=== PATIENT | male | born 2000 | race Caucasian/White ===

== ENCOUNTER 2019-07-30 14:18 | Emergency (ER) | payer MEDICAID, SELFPAY ==
[2019-07-30 14:20] VITALS: BP 134/65; PULSE 98; RESP 16; TEMP 36.8; O2SAT 100; BMI 21.8
--- NOTE | 2019-07-30 14:46 | ED.VIS.GEN ---
History of Present Illness Chief Complaint: Lower Extremity Injury Informant: Patient Onset: Yesterday Context: Gradual Onset Timing: Continuous Current Severity: Moderate Maximum Severity: Moderate Narrative: The patient presents to the emergency department with left leg pain. He had a tattoo done about 4 days ago. He states for the first 2 days he felt fine. Over the past 24 hours, he said increasing redness and pain at the area. States he was walking today and had burning pain in the leg. He denies any swelling. He denies any fevers or chills. He has no history of immunosuppression. He has not taken anything for his pain. Prior similar symptoms: No Recent Illness/Hospitalization: No Past Medical History - Allergies and Home Meds Allergies/Adverse Reactions: Allergies No Known Allergies Allergy (Verified 07/30/19 14:19) Primary Care Physician: Chris Mai MD [STAFF PHYSICIAN] - 1 Day for another exam Prior records reviewed: Yes Past Medical History: None Surgical History: no surgical history Smoking Status: Current every day smoker Review of Systems General: Denies: Chills, Fever, Sweats Eyes: Denies: Visual changes - bilaterally, Diplopia ENT: Denies: Rhinorrhea, Sore throat Cardiovascular: Denies: Chest pain, Palpitations Respiratory: Denies: Dyspnea, Cough, Dyspnea on exertion Gastrointestinal: Denies: Abdominal pain, Nausea, Vomiting, Diarrhea, Melena, Hematochezia Genitourinary: Denies: Dysuria, Hematuria, Frequency Musculoskeletal: Reports: Arthralgias. Denies: Back pain, Extremity Pain Skin: Denies: Rash, Wounds Neurological: Denies: Headache, Weakness, Numbness Physical Exam Vital Signs/Narrative: Vital Signs Temp Pulse Resp BP Pulse Ox 07/30/19 14:20 98.2 F 98 16 134/65 H 100 Inital Vital Signs reviewed: Yes General: Well nourished, Well developed, No Acute Distress Head: Normocephalic, Atraumatic Eyes: Perrl, EOMI ENT: Moist mucous membranes, No rhinorrhea Neck: Supple, Nontender Cardiovascular: Regular rate, Regular rhythm, No murmurs Respiratory: No distress, CTA bilaterally, Chest nontender Abdomen: Soft, Nontender, Nondistended, Normal bowel sounds Back: Nontender, Normal Inspection Extremities: No edema, Tenderness - Cellulitis over the new tattoo on the left lateral calf. No lymphangitic streak. Compartments are soft. No crepitus. Normal pulses. Skin: Normal color, No rash Neurological: Alert, Oriented x3, Cranial nerves II-XII grossly intact, Normal Strength, Normal Sensation Psychological: Normal affect, Normal Mood Diagnostic/Tx/Re-eval - Medical Decision Making The patient presents with cellulitis after tattoo. There is no streaking. There is no evidence of dangerous process. It is all locally contained. He does not have a fever. He has no history of immunosuppression. The patient will be treated with Bactrim and Keflex. He was counseled to have this wound reevaluated within the next 24 to 48 hours or return to the emergency department if it is worsening in any way. He is comfortable with this plan of care. Impression 1. Cellulitis left lower extremity status post tattoo ED Disposition - Plan for ED Patient: Instructions: Cellulitis Prescriptions: Smz/Tmp Ds [Bactrim Ds] 1 tab PO BID #14 tab Prescription Printed Cephalexin [Keflex] 500 mg PO Q6 #40 cap Prescription Printed Referrals: Chris Mai MD [STAFF PHYSICIAN] - 1 Day for another exam
[2019-07-30] MEDS: Smz/Tmp Ds Tablet 1 TABLET PO (14:58)
[2019-07-30] MEDS: Cephalexin 250 MG Capsule 500 MG PO (14:58)
== END 2019-07-30 15:06 | disposition home or self-care (01) ==
LOC: ED 14:54
PROVIDERS: Emergency Provider Emergency Medicine
DX: L03.116 Cellulitis of left lower limb (principal); F17.200 Nicotine dependence, unspecified, uncomplicated
CPT/HCPCS: 99283

== ENCOUNTER 2020-03-03 00:30 | Emergency (ER) | payer MEDICAID, SELFPAY ==
[2020-03-03 00:32] VITALS: BP 133/88; PULSE 105; RESP 16; TEMP 36.9; O2SAT 98; BMI 20.2
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
--- NOTE | 2020-03-03 01:05 | ED.DEP ---
ED Disposition - Plan for ED Patient: Disposition: Home or Assisted Living Instructions: ED Head Injury Adult Referrals: Cj Walton MD [NON-STAFF] - 3-5 Days if not improving Additional Instructions: Plenty of fluids and rest. Follow-up if not improving. You are medically cleared to go back to work.
--- OUTSIDE RECORDS SUMMARY | 2020-07-06 13:20 | XMS RPT_ITS | CCD ---
:2000 External Reference #:[id number] Demographics Preferred Language Unknown Marital Status Unknown Nondenominational Affiliation Unknown Race Unknown Ethnic Group Unknown Author Organization [facility] Care Team Providers Name Role Phone Unavailable Unavailable Unavailable Results Result Name Value Range Unit Interpretation Flag Date Location progress on 2020-02 PROGRESS HNO ID: [id number] Normal 02-26-2020 [facility] Author: Sg Gomez ([id number]) Service: ? Author Type: Physician Type: Progress Notes Filed: 02/26/2020 5:04 PM Note Text: Express Care Triage Note: Patient presents to the express care with complaint of synco pal episodes today. He was able to work much of the day but had episodes of pressure like electric in his head and passing out. He notes he had a glass vase or lamp fall on his head a couple days ago. He is not feelin g syncopal currently. He appears anxious but is alert and speaking flue ntly. Offered EMS. His girlfriend will take him to [facility] ER for furt her evaluation. cnov on 2020-02-26 CNOV Office Visit (UCWSTR) Normal 02-26-[address] [place] [address] [facility] CARLO ANDERSON ([id number]) 99 M [facility] Time Provider Department ([id number]) 02/26/20 5:00 PM SG GOMEZ [facility] During your visit today, we recorded the following informati on about you: Sg Gomez MD 02/26/2020 5:04 PM Signed Express Care Triage Note: Patient presents to the expr ess [facility] with complaint of syncopal episodes today. He was able to work much of the day but had episodes of pressure like electric in his head and passing out. He notes he had a g lass vase or lamp fall on his head a couple days ago. He is not feeling syncopal currently . He appears anxious but is alert and speaking fluently. Offered REJI Napier. His girlfriend will take him to [facility] ER for further evaluation. Referring Provider: SELF [[id number]] Allergies As of Date: 02/26/2020 (No Known Allergies) Date Reviewed: 05/17/2017 Reviewed by: Marlo Faustin - Fully Assessed Reason for Visit: Syncope [106] Primary Visit Diagnosis:Syncope, unspecified syncope type [R 55] Prescriptions as of 02/26/2020 Sig: MINOCYCLINE 100 MG CAPSULE TAKE 1 CAPSULE BY MOUTH ONCE * DEXAMETHASONE 0.75 MG TABLET ADAPALENE 0.1 % TOPICAL CREAM Use on acne prone areas each * DEXTROAMPHETAMINE-AMPHETAMINE* Take 1 capsule by mouth every * Problem List As Of Date 02/26/2020 Noted Resolved Other behavioral problems [V40.3] 12/28/2005 11/15/2011 Inguinal hernia unilateral 09/30/2009 11/15/2011 Toe pain [M79.676] 11/15/2011 02/07/2012 Rash and nonspecific skin eruption [R21] 02/07/2012 07/01/20 15 Attention deficit hyperactivity disorder (ADHD)*07/01/2015 Encounter Status:Closed by SG GOMEZ MD on 02/26/20 liver on 2019-02-15 Albumin mass conc 4.0 3.2-5.0 GM/DL Normal 02-15-2019 [facility] ([id number]) Comment: Performed By: #### L500.0449 9 #### [address] [address] Albumin/Globulin mass ratio 1.4 0.8-2.0 {ratio} Normal [facility] [place] ([id number]) Comment: Performed By: #### [id number] 9 #### [facility] [address] [place] [address] ALK PHOS 153 45-117 U/L High 02-15-2019 [facility] ([id number]) Comment: Performed By: #### [id number] 9 #### [facility] [address] [place] [address] ALT enzyme act/vol 101 13-61 IU/L High 02-15-2019 [facility] ([id number]) Comment: Result Comment: RESULTS MAY BE FALSELY DEPRESSED AFTER THE ADMINISTRATION OF SULFASALAZINE AND/OR SULFAPY RIDINE. Performed By: #### [id number] 9 #### [facility] [address] [place] [address] BILI DIRECT 0.11 0.00-0.20 MG/DL Normal 02-15-2019 [facility] ([id number]) Comment: Performed By: #### [id number] 9 #### [facility] [address] [place] [address] BILI TOTAL 0.4 0.2-1.0 MG/DL Normal 02-15-2019 [facility] ([id number]) Comment: Performed By: #### [id number] 9 #### [facility] [address] [place] [address] Globulin mass conc (S) 3.0 2.2-4.2 GM/DL Normal [address] [place] [address] (00 000) Comment: Performed By: #### [id number] 9 #### [facility] [address] [place] [address] Protein mass conc 7.0 6.0-8.5 GM/DL Normal 02-15-2019 [facility] ([id number]) Comment: Performed By: #### [id number] 9 #### [facility] [address] [place] [address] SGOT (AST) 42 8-34 U/L High 02-15-2019 [facility] ([id number]) Comment: Result Comment: RESULTS MAY BE FALSELY DEPRESSED AFTER THE ADMINISTRATION OF SULFASALAZINE AND/OR SULFAPY RIDINE. Performed By: #### [id number] 9 #### [facility] [address] [place] [id number] # [phone] Summary Purpose Family History No Family History Records FoundNo Family History Records Found Advance Directives No Advanced Directives Records FoundNo Advanced Directives Records Found Additional Source Comments FOR RECORDS PERTAINING TO PATIENTS WHO ARE OR HAVE BEEN ENROLLED IN A CHEMICAL DEPENDENCY/SUBSTANCE ABUSE PROGRAM, SOME INFORMATION MAY BE OMITTED. This clinical summary was aggregated from multiple sources. Caution should be exercised in using it in the provision of clinical care. This summary normalizes information from multiple sources, and as a consequence, information in this document may materially changethe coding, format and clinical context of patient data. In addition, data may be omittedin some cases. CLINICAL DECISIONS SHOULD BE BASED ON THE PRIMARY CLINICAL RECORDS. [facility] provides no warranty or guarantee of the accuracy or completeness of information in this document. UNRECOGNIZED CONTENT PROVIDED BELOW FOR UNRECOGNIZED SECTION No Status Records FoundNo Status Records Found UNRECOGNIZED CONTENT PROVIDED BELOW FOR UNRECOGNIZED SECTION INFORMATION SOURCE DATE CREATED AUTHOR AUTHOR'S ORGANIZATIO N 02/23/2019 [facility] DATE CREATED AUTHOR AUTHOR'S ORGANIZATIO N 02/26/2020 [facility] milagros
--- OUTSIDE RECORDS SUMMARY | 2020-07-06 13:20 | XMS RPT_ITS | CCD ---
:2000 External Reference #:[id number] Demographics Preferred Language Unknown Marital Status Unknown Jew Affiliation Unknown Race Unknown Ethnic Group Unknown Author Organization [facility] Care Team Providers Name Role Phone Unavailable Unavailable Unavailable Results Result Name Value Range Unit Interpretation Flag Date Location progress on 2020-02 PROGRESS HNO ID: [id number] Normal 02-26-2020 [facility] Author: Sg Gomez ([id number]) Service: ? Author Type: Physician Type: Progress [...] EMS. His girlfriend will take him to [facility] ER for furt her evaluation. cnov on 2020-02-26 CNOV Office Visit (UCWSTR) Normal 02-26-[address] [place] [address] [facility] CARLO ANDERSON ([id number]) 99 M [facility] Time Provider Department ([id number]) 02/26/20 5:00 PM SG GOMEZ [facility] During your visit today, we recorded the following informati on about you: Sg Gomez MD 02/26/2020 5:04 PM Signed Express Care Triage Note: Patient presents to the expr ess [facility] with complaint of syncopal episodes today. He [...] Napier. His girlfriend will take him to [facility] ER for further evaluation. Referring Provider: SELF [...] mass conc 4.0 3.2-5.0 GM/DL Normal 02-15-2019 [facility] ([id number]) Comment: Performed By: #### [id number] 9 #### [address] [address] Albumin/Globulin mass ratio 1.4 0.8-2.0 {ratio} Normal [facility] [place] ([id number]) Comment: Performed By: #### [id number] 9 #### [facility] [address] [place] [address] ALK PHOS 153 45-117 U/L High 02-15-2019 [facility] ([id number]) Comment: Performed By: #### [id number] 9 #### [facility] [address] [place] [address] ALT enzyme act/vol 101 13-61 IU/L High 02-15-2019 [facility] ([id number]) Comment: Result Comment: RESULTS MAY BE FALSELY DEPRESSED AFTER THE ADMINISTRATION OF SULFASALAZINE AND/OR SULFAPY RIDINE. Performed By: #### [id number] 9 #### [facility] [address] [place] [address] BILI DIRECT 0.11 0.00-0.20 MG/DL Normal 02-15-2019 [facility] ([id number]) Comment: Performed By: #### [id number] 9 #### [facility] [address] [place] [address] BILI TOTAL 0.4 0.2-1.0 MG/DL Normal 02-15-2019 [facility] ([id number]) Comment: Performed By: #### [id number] 9 #### [facility] [address] [place] [address] Globulin mass conc (S) 3.0 2.2-4.2 GM/DL Normal [address] [place] [address] (00 000) Comment: Performed By: #### [id number] 9 #### [facility] [address] [place] [address] Protein mass conc 7.0 6.0-8.5 GM/DL Normal 02-15-2019 [facility] ([id number]) Comment: Performed By: #### [id number] 9 #### [facility] [address] [place] [address] SGOT (AST) 42 8-34 U/L High 02-15-2019 [facility] ([id number]) Comment: Result Comment: RESULTS MAY BE FALSELY DEPRESSED AFTER THE ADMINISTRATION OF SULFASALAZINE AND/OR SULFAPY RIDINE. Performed By: #### [id number] 9 #### [facility] [address] [place] [id number] # [phone] Summary Purpose Family History No Family History [...] BE BASED ON THE PRIMARY CLINICAL RECORDS. [facility] provides no warranty or guarantee of the accuracy or completeness of information in this document. UNRECOGNIZED CONTENT PROVIDED BELOW FOR UNRECOGNIZED SECTION No Status Records FoundNo Status Records Found UNRECOGNIZED CONTENT PROVIDED BELOW FOR UNRECOGNIZED SECTION INFORMATION SOURCE DATE CREATED AUTHOR AUTHOR'S ORGANIZATIO N 02/23/2019 [facility] DATE CREATED AUTHOR AUTHOR'S ORGANIZATIO N 02/26/2020 [facility] milagros
== END 2020-03-03 01:12 | disposition home or self-care (01) ==
LOC: ED 01:12
PROVIDERS: Emergency Provider Emergency Medicine
DX: R42 Dizziness and giddiness (principal); S09.90XA Unspecified injury of head, initial encounter; F17.200 Nicotine dependence, unspecified, uncomplicated; W22.8XXA Striking against or struck by other objects, initial encounter
CPT/HCPCS: 99282

== ENCOUNTER 2020-05-14 11:16 | Emergency (ER) | payer MEDICAID, SELFPAY ==
[2020-05-14 11:17] VITALS: BP 151/114; PULSE 88; RESP 15; TEMP 36.2; O2SAT 98; BMI 23.0
--- NOTE | 2020-05-14 11:38 | EKG12_ITS ---
Test Reason : GENERAL ILLNESS Blood Pressure : / mmHG Vent. Rate : 084 BPM Atrial Rate : 084 BPM P-R Int : 176 ms QRS Dur : 088 ms QT Int : 358 ms P-R-T Axes : 059 053 047 degrees QTc Int : 423 ms Sinus rhythm with sinus arrhythmia with occasional Premature ventricular complexes Otherwise normal ECG Confirmed by JENN SHARPE, LINDA ([id number]), school photograph editor AMBER HIGHTOWER ([id number]) on 05/16/2020 11:27:13 A M Referred By: FLORIN Confirmed By:TAE BARAJAS MD
--- NOTE | 2020-05-14 11:46 | RAD_ITS ---
STUDY: X-RAY CHEST REASON FOR EXAM: Male, 19 years old. INTERMITTENT and quot;SHOCK BEHIND HIS EYES AND INTO HIS CHEST and quot;. and quot;DRAINS ALL HIS ENERGY and quot;. GOING ON FOR A COUPLE DAYS TECHNIQUE: Single AP portable view of the chest. COMPARISON: None. FINDINGS: The lungs are clear and expanded. There is no demonstrated pleural abnormality. Normal size heart. Normal mediastinum and ruddy. Normal visualized pulmonary arteries. Normal visualized aortic arch and descending thoracic aorta. Normal visualized thoracic spine. Normal visualized ribs, clavicles, and shoulders. There is no demonstrated abnormality of the visualized soft tissue structures of the upper abdomen. RAD/Chest 1 View (Portable) IMPRESSION: Normal x-ray examination of the chest. Electronically Signed: Wes Beal, at 12:52 EDT , Service support ,
--- NOTE | 2020-05-14 11:53 | ED.VISSUMM ---
- ER Visit Summary Date of Service: 05/14/20 Chief Complaint: Chest pain History of Present Illness: The patient is a 19 M who presents with chest pain that has been intermittent over the past 2 days. Patient describes the pain is sharp and stabbing. Patient states the pain is over the left lower chest area. Patient states the pain last for couple minutes then resolves. Patient states the pain is worse with stress and with exertion. Patient also admits to some shortness of breath with exertion. Patient states he is out of breath when he goes up a flight of steps. Patient also admits to some weakness in his lower extremities. Patient states he feels like his legs want to give out. Patient also admits to a generalized headache. Physical Examination: Vital signs are stable. Patient is afebrile. Patient is in no acute distress. Oral mucosa is pink and moist. Neck is supple. Trachea is midline. There is no JVD noted. Heart was regular rate and rhythm. Lungs are clear and equal bilaterally. There is some reproducible tenderness over the left lower chest wall. Abdomen is soft. Bowel sounds are normal. There is no tenderness. There is no rebound or guarding noted. Skin is warm dry. Cranial nerves II through XII are intact. There are no focal motor or sensory deficits noted. Extremities are intact. There is no calf tenderness or edema. Test Results: EKG showed normal sinus rhythm with a rate of 84. There are no acute ST or T wave changes. This was unchanged compared to previous EKG dated 03/12/2017. CBC and comprehensive metabolic profile were obtained and were essentially within normal limits. Influenza swab was obtained and was negative. Portable chest x-ray was obtained. There is no acute cardiopulmonary process. This was interpreted by the radiologist and reviewed by myself. Emergency Department Course and Treatment: Patient was given a dose of Toradol here. Patient felt better on reevaluation. Patient has a HEART score of 1. Patient was advised that this is low risk for acute cardiac event. Patient was instructed to follow-up with his primary care physician in 5 to 7 days. Patient was instructed to take Tylenol or ibuprofen as needed for pain. Patient understood and was agreeable with the plan. All questions were answered. Disposition: Discharge home Impression: Chest pain This note was generated with [employer] dictation software. It may contain incorrect words, spelling, and punctuation that were not noted in review of the chart prior to signing ED Disposition - Plan for ED Patient: Disposition: Home or Assisted Living Diagnosis: Chest pain Instructions: ED Chest Pain Atypical Unkn Cause Referrals: Angeles Gupta [NON-STAFF] - 5-7 Days Irene Lucero [STAFF PHYSICIAN] - 5-7 Days
[2020-05-14 12:08] LABS: Absolute Lymphocyte Count 2.25 X10^3/uL (0.83-4.51); Absolute Neutrophil Count 4.3 X10^3/uL (2.0-7.7); Basophil# 0.02 X10^3/uL; Basophil% 0.3 % (0-1); Eosinophil# 0.12 X10^3/uL; Eosinophils% 1.5 % (0-5); Hematocrit 47.7 % (40-54); Hemoglobin 15.6 g/dL (13.0-16.5); Lymphocyte # 2.25 X10^3/ul (4.0); Lymphocyte % 28.2 % (19-41); Mean Corp Hgb Conc 32.7 g/dL (32-36); Mean Corpuscular Hgb 30.2 pg (27.0-32.0); Mean Corpuscular Volume 92.4 fL (80-94); Mean Platelet Vol. 10.7 fl (6.2-12.0); Monocyte# 1.25 X10^3/uL; Monocyte% 15.7 % (0-10); NRBC Flagged by Analyzer 0 % (0-5); Neutrophil # 4.28 X10^3/uL (2.7-7.7); Neutrophil % 53.7 % (47-70); Platelet Count 199 K/mm3 (150-450); RBC Distribution Width CV 13.4 % (11.6-14.6); RBC Distribution Width SD 45.7 fl (35.1-43.9); Red Blood Count 5.16 M/mm3 (4.6-6.2)
[2020-05-14 12:20] LABS: AST(SGOT) 79 U/L (15-37); Alanine Aminotransfer ALT/SGPT 198 U/L (16-61); Albumin, Serum 3.6 g/dL (3.2-5.0); Alkaline Phosphatase 144 U/L (45-117); Anion Gap 2 (5-15); BUN 13 mg/dL (7-18); BUN/Creat Ratio 13.4 RATIO (10-20); Calcium,Total 8.8 mg/dL (8.5-10.1); Chloride 106 mmol/L (98-107); Creatinine, Serum 0.97 mg/dL (0.70-1.30); EST Glomerular Filtration Rate 104 mL/min (>60); Est Glom Filt Rate - Afr Amer 126 mL/min (>60); Globulin 3.7 g/dL (2.2-4.2); Glucose 65 mg/dL (74-106); Potassium 4.1 mmol/L (3.5-5.1); Protein, Total 7.3 g/dL (6.4-8.2); Sodium Level 141 mmol/L (136-145)
[2020-05-14 12:28] VITALS: BP 127/72; PULSE 76; RESP 16; O2SAT 100
[2020-05-14] MEDS: 0.9% Normal Saline 1,000 ML 1000 ML IV (12:28)
[2020-05-14] MEDS: Ketorolac 30 MG/ML Syringe IV (12:28)
[2020-05-14 12:55] VITALS: BP 118/60; PULSE 70; RESP 16; O2SAT 98
--- NOTE | 2020-05-14 13:15 | CM.ED ---
Social Work Consult: Mental Health Informant: Shantal from . Shantal called [facility] ED to updated on patient being send to the ED for a mental Health eval. Shantal states that has been reporting shocks of pain and per Shantal there is not evidence of this. Chief Complaint: Chest Pain. Patient state things are fine. Martial/Social History: Single. Living Arrangements: Currently living at [facility] with Supports/Resources: Reports support from mother, father, girlfriend and [employer]. Education/Employment: Unemployed. Denies any issues with comprehension or understanding. Mental Health treatment/history: Denies. I was not some crazy meds per patient. Patient states they thought I was crazy. Patient states history of inpatient psychiatric placement. Patient states to have stayed at the [facility] when patient was an adolescent. Patient denies being prescribed any medication for mental health management. Patient states I do think I get anxious. Substance Abuse/use: Heroine and Meth. Patient states to have last used on 03-17-2020 when I turned myself in. Patient states to [place] [facility] [place] [facility] I [facility]. Patient currently has a stream control officer and reports that patient is court ordered to participate in substance abuse supports ([facility]). Patient states I want to get clean. Risk to Self/Others: Patient denies any homicidal/suicidal thoughts/plans/intents. Patient does reports to have rage but I can control that. Patient denies any harm to others or thinking of harming others or self. Mental Status Exam: A&Ox3 Appearance/General Behavior: Calm. Sleepy. Mood/Affect: Appropriate. Thought Process: Reports to have heard a High pitched noise when patient went to group yesterday but denies any other auditory hallucinations. Patient denies visual hallucinations. Patient denies any concerns of paranoia. Judgement: Fair Assessment: Met with patient in room. Introduced self and social science professor role. Patient agreeable to speaking with this social science professor. Patient expressing no concerns on returning to [facility] and just wanted to get checked out. Patient states that [facility] is helping patient get on the right track. Patient voicing no further needs. Updated Dr. Casarez on above social work assessment and reason for referral. Mendy Dietz MSW, REGGIE
[2020-05-14 13:47] VITALS: BP 120/58; PULSE 103; RESP 16; O2SAT 997
== END 2020-05-14 13:55 | disposition home or self-care (01) ==
PROVIDERS: Emergency Provider Emergency Medicine
DX: R07.9 Chest pain, unspecified (principal); F17.200 Nicotine dependence, unspecified, uncomplicated
CPT/HCPCS: 71045; 80053; 85025; 87804; 93005; 96374; 99284; J7030; A4216

== ENCOUNTER 2020-06-03 15:33 | Emergency (ER) | payer MEDICAID, SELFPAY ==
[2020-06-03 15:34] VITALS: BP 144/75; PULSE 86; RESP 14; TEMP 37.3; O2SAT 100; BMI 22.1
--- NOTE | 2020-06-03 16:07 | ED.VISSUMM ---
- ER Visit Summary Date of Service: 06/03/20 Chief Complaint: Suicide attempt History of Present Illness: The patient is a 19 M who comes in with an initial complaint of rash but then tells nursing staff he has been suicidal for the past week. He tried to overdose on fentanyl 2 days ago. He states that he woke up and decided to come to the ED because he did not . His last suicide attempt in 2016 while incarcerated. He said that they put him on psychiatric meds and when he came out of jail he stopped taking the medications because they made him more suicidal. He denies any homicidal ideation, auditory or visual hallucinations. Physical Examination: Vital signs reviewed. HEENT exam unremarkable. Heart is regular rate and rhythm without murmurs. Lungs are clear to auscultation. Abdomen is soft and nontender. Extremities reveal no edema. Skin exam normal. Neurologic exam normal. Psychiatric exam reveals depressed male with flat affect. He does voice suicidal thoughts Test Results: Hemoglobin 16.6, chloride 108, ALT 101, AST 48, alkaline phosphatase 136 Emergency Department Course and Treatment: The patient was evaluated by our manager of case management. From a medical standpoint he is medically cleared for psychiatric evaluation and transfer. The patient was discussed with [facility] and was accepted for psychiatric transfer Treatment Plan: [] Disposition: Discharge Impression: Suicide attempt, depression This note was generated with [employer] dictation software. It may contain incorrect words, spelling, and punctuation that were not noted in review of the chart prior to signing ED Disposition - Plan for ED Patient: Referrals: Care Physician,No Primary [Primary Care Provider] -
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
[2020-06-03 16:20] LABS: Absolute Lymphocyte Count 1.67 X10^3/uL (0.83-4.51); Absolute Neutrophil Count 8.4 X10^3/uL (2.0-7.7); Basophil# 0.04 X10^3/uL; Basophil% 0.4 % (0-1); Eosinophil# 0.09 X10^3/uL; Eosinophils% 0.8 % (0-5); Hematocrit 48.8 % (40-54); Hemoglobin 16.6 g/dL (13.0-16.5); Lymphocyte # 1.67 X10^3/ul (4.0); Lymphocyte % 15.3 % (19-41); Mean Corpuscular Hgb 30.5 pg (27.0-32.0); Mean Corpuscular Volume 89.7 fL (80-94); Mean Platelet Vol. 10.6 fl (6.2-12.0); Monocyte# 0.73 X10^3/uL; Monocyte% 6.7 % (0-10); NRBC Flagged by Analyzer 0 % (0-5); Neutrophil # 8.37 X10^3/uL (2.7-7.7); Neutrophil % 76.4 % (47-70); Platelet Count 282 K/mm3 (150-450); RBC Distribution Width CV 11.9 % (11.6-14.6); RBC Distribution Width SD 38.7 fl (35.1-43.9); Red Blood Count 5.44 M/mm3 (4.6-6.2); White Blood Count 10.9 K/mm3 (4.4-11.0)
[2020-06-03 16:51] LABS: Alcohol, Blood (Medical)-Serum < 3.0 mg/dL
[2020-06-03 16:55] LABS: Amphetamine Urine VISTA NEGATIVE (<1000 ng/mL); Barbiturate Urine VISTA NEGATIVE (< 200 ng/mL); Benzodiazepine Urine VISTA NEGATIVE (< 200 ng/mL); Cocaine Urine VISTA NEGATIVE (< 300 ng/mL); Ecstacy Urine VISTA NEGATIVE (< 500 ng/mL); Methadone Urine VISTA NEGATIVE (< 300 ng/mL); PCP Urine VISTA NEGATIVE (< 25 ng/mL); THC Urine VISTA NEGATIVE (< 50 ng/mL); Vista UDS pH Range 7
[2020-06-03 17:00] LABS: ALB/GLOB Ratio 0.9 RATIO (0.9-2.4); AST(SGOT) 48 U/L (15-37); Alanine Aminotransfer ALT/SGPT 101 U/L (16-61); Albumin, Serum 3.8 g/dL (3.2-5.0); Alkaline Phosphatase 136 U/L (45-117); Anion Gap 4 (5-15); BUN 13 mg/dL (7-18); BUN/Creat Ratio 14.5 RATIO (10-20); Calcium,Total 9.1 mg/dL (8.5-10.1); Chloride 108 mmol/L (98-107); EST Glomerular Filtration Rate 115 mL/min (>60); Est Glom Filt Rate - Afr Amer 139 mL/min (>60); Estimated Creatinine Clearance 133.33 ml/min; Globulin 4.4 g/dL (2.2-4.2); Glucose 79 mg/dL (74-106); Potassium 4.1 mmol/L (3.5-5.1); Protein, Total 8.2 g/dL (6.4-8.2); Sodium Level 138 mmol/L (136-145)
--- NOTE | 2020-06-03 17:21 | CM.ED ---
SOCIAL WORK Per Dr. Nieves, patient is medically cleared for placement. Referral faxed and called to Sonia with [facility]. Awaiting acceptance at this time. Iman Eason, HAND BOOKED FOLDER AND STITCHER, INTERNET SALES MANAGER
[2020-06-03 17:30] VITALS: RESP 18
--- NOTE | 2020-06-03 17:44 | CM.ED ---
SOCIAL WORK Patient accepted to [facility] by Dr. Jones to the Dual Dx Unit. Nurse to call report to option 1. Belt Fixer to set up transport. Patient and staff updated. Copy of [facility] [place] [facility] faxed per request. Iman Eason, PACKAGING MACHINE SUPPLIES DISTRIBUTOR, MILLER HELPER
--- NOTE | 2020-06-03 17:47 | NURSING ---
patient accepted at [facility]
== END 2020-06-03 19:26 ==
LOC: ED 16:47
PROVIDERS: Emergency Provider Emergency Medicine
DX: F32.9 Major depressive disorder, single episode, unspecified (principal)
CPT/HCPCS: 80053; 80307; 80320; 85025; 99281; 99283; G0480

== ENCOUNTER 2020-06-20 13:37 | Observation (INO) | payer MEDICAID, SELFPAY ==
[2020-06-20 13:37] VITALS: BP 130/81; PULSE 98; RESP 16; TEMP 36; O2SAT 98; BMI 23.0
--- NOTE | 2020-06-20 14:02 | ED.DCSUM_ITS ---
- ER Visit Summary Date of Service: 06/20/20 Chief Complaint: Requesting detox for IV methamphetamine and fentanyl abuse. History of Present Illness: The patient is a 19 M with depression and IV drug abuse. Patient states she has been using fentanyl methamphetamine for years. 2 weeks ago he was discharged from a [facility] for depression. States he has been using frequently since that time. Denies ever going through detox. Physical Examination: Young male no acute distress vital signs stable afebrile febrile. He does not look septic or toxic. HEENT exam unremarkable. Neck nontender no lymphadenopathy. Lungs clear to auscultation bilaterally. Heart regular rhythm no murmur. Chest wall nontender. Abdomen soft nontender. Extremities moves all 4. Neurovascular intact. Track infante in both antecubital areas of both arms. No abscesses or cellulitis. Back nontender. Neurologically is awake alert with no focal motor deficits. Test Results: Hospitalist requested a CBC and CMP. Emergency Department Course and Treatment: Patient requesting detox. He denies any physical complaints. He has no fever. His exam is unremarkable. I have the hospitalist on page for admission. Treatment Plan: Hospitalist on page for inpatient detox. Disposition: Admission Impression: Requesting detox for IV fentanyl and IV methamphetamine abuse. History of depression This note was generated with [employer] dictation software. It may contain incorrect words, spelling, and punctuation that were not noted in review of the chart wilder or to signing ED Disposition - Plan for ED Patient: Referrals: Care Physician,No Primary [Primary Care Provider] -
[2020-06-20 14:14] VITALS: BMI 23.0
--- NOTE | 2020-06-20 14:18 | HP.PCM_ITS ---
Problem List (1) Acute opioid withdrawal Status: Acute (2) Nicotine dependence Status: Acute Qualifiers: Nicotine product type: cigarettes Substance use status: uncomplicated Qualified Code(s): F17.210 - Nicotine dependence, cigarettes, uncomplicated (3) Anxiety and depression Status: Chronic History of Present Illness Date of Admission: 06/20/20 Chief Complaint: Acute opioid withdrawal The patient is a 19 year old M past medical history of polysubstance use disorder, chronic smoker who comes in requesting for medical stabilization from chronic fentanyl and amphetamine use. Patient uses at least half a gram of fentanyl every day as well as $40 worth of methamphetamine. He last used 1 this morning. Patient states that he was recently discharged from a [facility] for depression and suicidal ideation. He denied any suicidal or homicidal ideation now. Patient denied any active complaints at the time of being seen. He denied any fever or chills or shortness of breath or chest pain. His vitals in the ED showed temperature of 96.8F, heart rate 98, blood pressure 130/81, respiratory rate 16, SPO2 is 98% on room air. His CBC D was unremarkable. CMP and urine tox was pending. Past Medical History Past Medical History (Chronic Problems): Chronic Problems Anxiety and depression (Chronic) Allergies No Known Allergies Allergy (Verified 06/20/20 13:42) Home Medications: Ambulatory Orders Medication Instructions Recorded NK 05/14/20 Surgical History: appendectomy - at age 8 years Lives: Spouse/ Significant Other Smoking Status: Current every day smoker Tobacco Use: Cigarettes Alcohol: None Drugs: - - amphetamines and IV fentanyl - *Family History Maternal History Items: Cancer Paternal History Items: - - anxiety/depression Review of Systems Constitutional: Denies: Anorexia, Chills, Fever, Malaise, Weakness, Weight Change, Fatigue Eyes: Denies: Blurred vision, Cataracts, Conjunctivae Inflammation, Pain, Redness, Vision Change HEENT: Denies: Difficulty Hearing, Difficulty Swallowing, Head Aches, Hearing Changes, Sinus Congestion, Sinus Drainage, Sore Throat Cardiovascular: Denies: Chest Pain, Claudication, Orthopnea, Palpitations Respiratory: Denies: Cough, Hemoptysis, Shortness of breath at rest, Shortness of breath upon exertion, Sputum production Gastrointestinal: Denies: Abdominal Pain, Hematemesis, Hematochezia, Nausea, Vomiting Genitourinary: Denies: Dysuria, Frequency, Incontinence Musculoskeletal: Denies: Joint Pain, Joint stiffness, Joint swelling, Joint Tenderness Skin: Denies: Dryness, Pruritis, Rash, Wounds Neurological: Denies: Numbness, Tingling, Focal weakness Psychiatric: Denies: Anxiety, Depression, Homicidal Ideations, Suicidal Ideations Hematologic/ Lymphatic: Denies: Easy Bruising, Easy Bleeding VTE Information - Inpt Only VTE Present on Admission: No VTE Pharm Prophylaxis ordered?: Yes Patient Problems: Active and Suspected Problems Acute opioid withdrawal (Acute) Nicotine dependence (Acute) - Physical Exam Vitals/I&O's: Vital Signs Temp Pulse Resp BP Pulse Ox 96.8 F L 98 16 130/81 H 98 06/20/20 13:37 06/20/20 13:37 06/20/20 13:37 06/20/20 13:37 06/20/20 13:37 Oxygen Delivery Method Room Air Weight: 74.843 kg Body Mass Index (BMI) 23.0 General: Alert, Oriented x3, Cooperative, No apparent distress HEENT: Atraumatic, PERRLA, EOMI, Normocephalic Oral: Moist Mucosa Neck: Supple Lungs: Clear to auscultation, Normal air movement Cardiovascular: Regular rate, Regular Rhythm, Normal S1, Normal S2, No murmurs Abdomen: Bowel Sounds Present, Soft, Non Tender, Non-Distended, No Hepato- splenomegaly Extremities: No edema Skin: - - multiple needle stick infante all over the body. Musculoskeletal: No Tenderness to Palpation of Joints or Extremities Lymphatic: No Cervical, Supraclavicular, or Inguinal Adenopathy Neurological: Cranial nerves II-XII grossly intact, Neuro grossly intact Psych/Mental Status: Normal Affect, Appropriate Assessment/Plan All Active Problems Acute opioid withdrawal (Acute) Nicotine dependence (Acute) 1. Acute opioid use disorder, patient has heavy use of fentanyl, anticipate active withdrawal Requesting for medical stabilization Patient will require medication and monitoring for withdrawal based on regular assessment and is appropriate for ASAM level 4.0 Would admit to the [facility] floor, monitor on the buprenorphine protocol 2. Nicotine dependence, on replacement 3. DVT prophylaxis-low risk; early ambulation Inpatient E&M: [id number] Init Hosp L2
[2020-06-20 14:41] VITALS: BMI 20.4
[2020-06-20 14:50] VITALS: BP 124/77; PULSE 73; RESP 16; TEMP 36
[2020-06-20 14:53] LABS: Absolute Lymphocyte Count 1.62 X10^3/uL (0.83-4.51); Absolute Neutrophil Count 5.2 X10^3/uL (2.0-7.7); Basophil# 0.03 X10^3/uL; Basophil% 0.4 % (0-1); Eosinophil# 0.12 X10^3/uL; Eosinophils% 1.5 % (0-5); Hematocrit 46.6 % (40-54); Hemoglobin 15.4 g/dL (13.0-16.5); Lymphocyte # 1.62 X10^3/ul (4.0); Lymphocyte % 20.1 % (19-41); Mean Corpuscular Hgb 29.6 pg (27.0-32.0); Mean Corpuscular Volume 89.4 fL (80-94); Mean Platelet Vol. 10.4 fl (6.2-12.0); Monocyte% 13.6 % (0-10); NRBC Flagged by Analyzer 0 % (0-5); Neutrophil # 5.17 X10^3/uL (2.7-7.7); Neutrophil % 64.2 % (47-70); Platelet Count 265 K/mm3 (150-450); RBC Distribution Width CV 11.9 % (11.6-14.6); RBC Distribution Width SD 39.7 fl (35.1-43.9); Red Blood Count 5.21 M/mm3 (4.6-6.2); White Blood Count 8.1 K/mm3 (4.4-11.0)
--- NOTE | 2020-06-20 14:56 | CM.ED ---
Social Work Consult: Substance Abuse Informant: Self Referral Met with patient in room. Introduced self and social science research assistant role. Patient agreeable to meeting with this social science research assistant. Patient reports substance of choice is Fentanyl and Meth. Patient states last use was last evening. Patient reports to be seeking medical management of withdrawal symptoms. Patient reports motivation for seeking help with substance abuse is wanting to stop the cycle. Patient reports to have positive supports in the community from nonusers. Patient denies any suicidal thoughts/plans/intents. Patient reports to have history of Depression and Anxiety. Patient verbally agreeing to [facility] contract. Telephone call to Shantal Echavarria. This social science research assistant updated Shantal on patient admission to the [facility] program. Mendy Dietz FUNERAL HOME DIRECTOR, REGGIE-S
[2020-06-20 15:10] VITALS: BP 116/62; PULSE 66; RESP 18; TEMP 36.4; O2SAT 100
[2020-06-20 15:11] LABS: ALB/GLOB Ratio 0.9 RATIO (0.9-2.4); AST(SGOT) 62 U/L (15-37); Alanine Aminotransfer ALT/SGPT 106 U/L (16-61); Albumin, Serum 3.6 g/dL (3.2-5.0); Alkaline Phosphatase 112 U/L (45-117); Anion Gap 2 (5-15); BUN 15 mg/dL (7-18); BUN/Creat Ratio 16.5 RATIO (10-20); Calcium,Total 9.1 mg/dL (8.5-10.1); Chloride 106 mmol/L (98-107); Creatinine, Serum 0.91 mg/dL (0.70-1.30); EST Glomerular Filtration Rate 113 mL/min (>60); Est Glom Filt Rate - Afr Amer 136 mL/min (>60); Estimated Creatinine Clearance 137.08 ml/min; Globulin 3.8 g/dL (2.2-4.2); Glucose 58 mg/dL (74-106); Potassium 4.1 mmol/L (3.5-5.1); Protein, Total 7.4 g/dL (6.4-8.2); Sodium Level 140 mmol/L (136-145)
[2020-06-20 15:54] LABS: Amphetamine Urine VISTA POSITIVE (<1000 ng/mL); Barbiturate Urine VISTA NEGATIVE (< 200 ng/mL); Benzodiazepine Urine VISTA NEGATIVE (< 200 ng/mL); Cocaine Urine VISTA NEGATIVE (< 300 ng/mL); Ecstacy Urine VISTA NEGATIVE (< 500 ng/mL); Methadone Urine VISTA NEGATIVE (< 300 ng/mL); PCP Urine VISTA NEGATIVE (< 25 ng/mL); THC Urine VISTA NEGATIVE (< 50 ng/mL); Vista UDS pH Range 6
[2020-06-20 17:40] LABS: HIV - WCH Non-Reactive (Nonreactive)
[2020-06-20 20:26] VITALS: BP 123/57; PULSE 70; RESP 16; TEMP 36.6; O2SAT 100
[2020-06-21 02:26] VITALS: BP 124/53; PULSE 63; RESP 16; TEMP 36.9; O2SAT 100
--- NOTE | 2020-06-21 08:10 | PCM.PROGNOTE ---
Patient Problems: Active and Suspected Problems Acute opioid withdrawal (Acute) Nicotine dependence (Acute) Subjective: Chief complaint: Follow-up after admission for acute opioid withdrawal admitted for medical stabilization. Patient seen and examined. No acute events overnight. He mentioned that he slept okay last night, symptoms are manageable at this time. He denied suicidal intentions or ideations. He did mention that he is supposed to take medicine for depression but he is not taking it. I requested him to find out what medicine he is taking for depression and to let us know. His vital signs are stable. - Physical Exam Vitals/I&O's: Vital Signs Temp Pulse Resp BP Pulse Ox 98.4 F 63 16 124/53 H 100 06/21/20 02:26 06/21/20 02:26 06/21/20 02:26 06/21/20 02:26 06/21/20 02:26 Oxygen Delivery Method Room Air Weight: 146 lb 9 oz Body Mass Index (BMI) 20.4 Intake and Output for Last 24 Hours 06/19/20 06/20/20 06/21/20 23:59 23:59 23:59 Intake Total 640 / 640 530 / 530 Balance 640 / 640 530 / 530 General: Alert, Oriented x3, Cooperative, No apparent distress HEENT: Atraumatic, PERRLA, EOMI, Normocephalic Oral: Moist Mucosa, No Gingival or Mucosal Lesions/ Ulcerations Neck: Supple, No JVD, Negative Carotid Bruits, Trachea Midline, Thyroid Normal Size and Texture Lungs: Clear to auscultation, Normal air movement, No rhonchi, No wheeze, No rales Cardiovascular: Regular rate, Regular Rhythm, Normal S1, Normal S2, PMI Normal Abdomen: Bowel Sounds Present, Soft, Non Tender, Non-Distended, No Hepato-splenomegaly Extremities: No clubbing, No cyanosis, No edema Skin: No rashes, No breakdown Lymphatic: No Cervical, Supraclavicular, or Inguinal Adenopathy Neurological: Cranial nerves II-XII grossly intact, Motor Exam 5/5 strength throughout Psych/Mental Status: Normal Affect, Appropriate, Alert and oriented to time, place, person, mood and affect Laboratory Results 06/20/20 14:35: WBC 8.1, RBC 5.21, Hgb 15.4, Hct 46.6, MCV 89.4, MCH 29.6, MCHC 33.0, RDW Std Deviation 39.7, RDW Coeff of Maria Fernanda 11.9, Plt Count 265, MPV 10.4, Immature Gran % (Auto) 0.200, Neut % (Auto) 64.2, Lymph % (Auto) 20.1, [place] % (Auto) 13.6 H, Eos % (Auto) 1.5, Baso % (Auto) 0.4, Absolute Neuts (auto) 5.2, Absolute Lymphs (auto) 1.62, Nucleated RBC % 0 06/20/20 14:35: Sodium 140, Potassium 4.1, Chloride 106, Carbon Dioxide 32.0, Anion Gap 2 L, BUN 15, Creatinine 0.91, Estim Creat Clear Calc 137.08, Est GFR (MDRD) Af Amer 136, Est GFR (MDRD) Non-Af 113, BUN/Creatinine Ratio 16.5, Glucose 58 L, Calcium 9.1, Total Bilirubin 0.60, AST 62 H, ALT 106 H, Alkaline Phosphatase 112, Total Protein 7.4, Albumin 3.6, Globulin 3.8, Albumin/Globulin Ratio 0.9 06/20/20 14:50: Urine Opiates Screen NEGATIVE, Urine Methadone Screen NEGATIVE, Ur Barbiturates Screen NEGATIVE, Ur Phencyclidine Scrn NEGATIVE, Ur Amphetamines Screen POSITIVE H, U Methamphetamin-MDMA NEGATIVE, U Benzodiazepines Scrn NEGATIVE, Urine Cocaine Screen NEGATIVE, U Cannabinoids Screen NEGATIVE, Ur Drug Screen Comment 06/20/20 15:55: Hepatitis A IgM Ab Pending, Hep Bs Antigen Pending, Hep B Core IgM Ab Pending, Hepatitis C Ab (EIA) Pending 06/20/20 15:55: HIV 1&2 Antibody Non-Reactive Current Medications Acetaminophen (Tylenol) 500 mg PO Q4H PRN PRN PRN Reason: Temp > 100.4 F Al Hydroxide/Mg Hydroxide (Mylanta Ii) 30 ml PO Q6H PRN PRN PRN Reason: dyspesia Bisacodyl (Dulcolax) 10 mg RECTAL DAILY PRN PRN Reason: Constipation Buprenorphine HCl (Buprenorphine Hcl) 0 mg SL Q8H NEETU; Taper Stop: 06/23/20 14:29 Clonidine (Catapres) 0.1 mg PO Q8H PRN PRN PRN Reason: RESTLESSNESS Dicyclomine HCl (Bentyl) 20 mg PO Q6H PRN PRN PRN Reason: Abdominal Discomfort Gabapentin (Neurontin) 300 mg PO Q8H PRN PRN PRN Reason: moderate to severe anxiety Hydroxyzine Pamoate (Vistaril Pamoate Capsule) 50 mg PO Q6H PRN PRN PRN Reason: mild anxiety Ibuprofen (Motrin) 600 mg PO Q8H PRN PRN PRN Reason: Pain Score 1-10/10 Loperamide HCl (Imodium) 2 mg PO Q4H PRN PRN PRN Reason: LOOSE STOOLS Methocarbamol (Methocarbamol) 1,500 mg PO Q6H PRN PRN PRN Reason: MUSCLE SPASM Nicotine (Nicoderm Cq (Pbkc)) 21 mg TRANSDERM. DAILY NEETU Last Admin: 06/20/20 17:01 Dose: 21 mg Documented by: Ondansetron HCl (Zofran) 8 mg PO Q8H PRN PRN PRN Reason: NAUSEA Senna (Senokot) 2 tablet PO QHS PRN PRN Reason: Constipation Trazodone HCl (Desyrel) 100 mg PO QHS PRN PRN PRN Reason: INSOMNIA Medical Necessity - Tobacco Use Smoking Status: Current every day smoker Tobacco Use: Cigarettes Assessment/Plan All Active Problems Acute opioid withdrawal (Acute) Nicotine dependence (Acute) This is a 19 years old male patient presented to the emergency room requesting admission for acute opiate withdrawal for medical stabilization. #1 acute opiate withdrawal: Patient has been using fentanyl and amphetamines. At this point, he has no significant withdrawal symptoms apart from some anxiety. He is on tapering Subutex, PRN Tylenol, Catapres, Bentyl, Neurontin, Vistaril, Motrin, Imodium, methocarbamol, Zofran and trazodone. His vital signs are stable. Routine blood work was unremarkable. LFT revealed slightly elevated liver transaminases, otherwise normal. Urine drug screen was positive for amphetamines. Hepatitis B and C serology are pending. HIV 1 and 2 antibodies are nonreactive. Plan: Continue same treatment, consult 180 program. #2 depression: With recent admission to psychiatric hospital in [place] for suicide. At this time, patient denied any suicidal ideations or intentions. He did mention that he is supposed to take a depression medicine but he is not. I requested him to find out what medicine he is taking for depression. #3 tobacco abuse: Continue NicoDerm patch. #4 DVT prophylaxis: Low risk patient, no prophylaxis indicated. This note was generated with [employer] dictation software. It may contain incorrect words, spelling, and punctuation that were not noted in checking the note before signing. Inpatient E&M: 08256 Subs Hosp L2
[2020-06-21 10:23] VITALS: BP 130/71; PULSE 75; RESP 18; TEMP 36.7; O2SAT 99
--- NOTE | 2020-06-21 13:29 | DS.PCM_ITS ---
Discharge Date and Diagnosis Date of Admission: 06/20/20 Date of Discharge: 06/21/20 - Primary Discharge Diagnosis Acute Problems: Acute opiate withdrawal admitted for medical stabilization, left AGAINST MEDICAL ADVICE. - Secondary Discharge Diagnosis Chronic Problems: Chronic Problems Anxiety and depression (Chronic) Hospital Course and Treatment Operations: None Procedures: None Summary of Care Provided: The patient is a 19 year old M presented to the emergency room requesting admission for acute opioid withdrawal for medical stabilization. Patient had no significant withdrawal symptoms upon admission. He was admitted to the floor, started on opioid withdrawal protocol and treatment with tapering Subutex and PRN medications. He was not started on Subutex because he had no significant symptoms. We are awaiting him to start having withdrawal symptoms. His routine blood work was unremarkable. LFT revealed slightly elevated liver transaminases, otherwise normal. Urine drug screen was positive for amphetamines. Patient admitted using fentanyl and amphetamines. He was seen on the day of discharge in the morning and he was fine. He had no significant complaints apart from some anxiety which is manageable. He was informed that he will be started on Subutex taper once he started having withdrawal symptoms. Afternoon on the day of discharge, patient informed nursing staff that he has an appointment with chief security and safety officer and he forgot this appointment and he wanted to go for it which we are not sure about. Patient left the hospital AGAINST MEDICAL ADVICE. - Physical Exam Vitals/I&O's: Vital Signs Temp Pulse Resp BP Pulse Ox 98.0 F 75 18 130/71 H 99 06/21/20 10:23 06/21/20 10:23 06/21/20 10:23 06/21/20 10:23 06/21/20 10:23 Oxygen Delivery Method Room Air Weight: 146 lb 9 oz Body Mass Index (BMI) 20.4 Intake and Output for Last 24 Hours 06/19/20 06/20/20 06/21/20 23:59 23:59 23:59 Intake Total 640 / 640 930 / 930 Balance 640 / 640 930 / 930 General: Alert, Oriented x3, Cooperative, No apparent distress HEENT: Atraumatic, PERRLA, EOMI, Normocephalic Oral: Moist Mucosa, No Gingival or Mucosal Lesions/ Ulcerations Neck: Supple, No JVD, Negative Carotid Bruits, Trachea Midline, Thyroid Normal Size and Texture Lungs: Clear to auscultation, Normal air movement, No rhonchi, No wheeze, No rales Cardiovascular: Regular rate, Regular Rhythm, Normal S1, Normal S2, PMI Normal Abdomen: Bowel Sounds Present, Soft, Non Tender, Non-Distended, No Hepato-spleno megaly Extremities: No clubbing, No cyanosis, No edema Skin: No rashes, No breakdown Lymphatic: No Cervical, Supraclavicular, or Inguinal Adenopathy Neurological: Cranial nerves II-XII grossly intact, Neuro grossly intact Psych/Mental Status: Normal Affect, Appropriate Laboratory Results 06/20/20 14:35: WBC 8.1, RBC 5.21, Hgb 15.4, Hct 46.6, MCV 89.4, MCH 29.6, MCHC 33.0, RDW Std Deviation 39.7, RDW Coeff of Maria Fernanda 11.9, Plt Count 265, MPV 10.4, I mmature Gran % (Auto) 0.200, Neut % (Auto) 64.2, Lymph % (Auto) 20.1, [place] % (Auto) 13.6 H, Eos % (Auto) 1.5, Baso % (Auto) 0.4, Absolute Neuts (auto) 5.2, Absolute Lymphs (auto) 1.62, Nucleated RBC % 0 06/20/20 14:35: Sodium 140, Potassium 4.1, Chloride 106, Carbon Dioxide 32.0, Anion Gap 2 L, BUN 15, Creatinine 0.91, Estim Creat Clear Calc 137.08, Est GFR (MDRD) Af Amer 136, Est GFR (MDRD) Non-Af 113, BUN/Creatinine Ratio 16.5, Glucose 58 L, Calcium 9.1, Total Bilirubin 0.60, AST 62 H, ALT 106 H, Alkaline Phosphatase 112, Total Protein 7.4, Albumin 3.6, Globulin 3.8, Albumin/Globulin Ratio 0.9 06/20/20 14:50: Urine Opiates Screen NEGATIVE, Urine Methadone Screen NEGATIVE, Ur Barbiturates Screen NEGATIVE, Ur Phencyclidine Scrn NEGATIVE, Ur Amphetamines Screen POSITIVE H, U Methamphetamin-MDMA NEGATIVE, U Benzodiazepines Scrn NEGATIVE, Urine Cocaine Screen NEGATIVE, U Cannabinoids Screen NEGATIVE, Ur Drug Screen Comment 06/20/20 15:55: Hepatitis A IgM Ab Pending, Hep Bs Antigen Pending, Hep B Core IgM Ab Pending, Hepatitis C Ab (EIA) Pending 06/20/20 15:55: HIV 1&2 Antibody Non-Reactive Home Medications: Medications to take at Discharge NK 05/14/20 Primary Care Physician: Care Physician,No Primary [Primary Care Provider] - Disposition: Against Medical Advice Minutes spent on discharge:: 26 Medical Necessity - Tobacco Use Smoking Status: Current every day smoker Tobacco Use: Cigarettes Meaningful Use Info Meaningful Use Diagnoses (Choose all that apply): None applicable Inpatient E&M: 01250 Disch Hosp
[2020-06-22 12:06] LABS: HEPATITIS B SURFACE AG Negative (Negative); Hepatitis A IgM Antibody Negative (Negative); Hepatitis B Core AB IgM Negative (Negative)
[2020-06-22 13:12] LABS: Hep C Antibodies >11.0 s/co ratio (0.0-0.9)
== END 2020-06-21 12:29 | disposition left against medical advice (07) ==
LOC: ED 14:03 → MS3 14:34
PROVIDERS: Admitting Provider Internal Medicine; Emergency Provider Emergency Medicine; Visit Provider Hospitalist
DX: F11.23 Opioid dependence with withdrawal (principal); F32.9 Major depressive disorder, single episode, unspecified; F41.9 Anxiety disorder, unspecified; F15.10 Other stimulant abuse, uncomplicated; F17.210 Nicotine dependence, cigarettes, uncomplicated
CPT/HCPCS: 36415; 80053; 80074; 80307; 85025; 86703; 97802; 99218; 99283; 99406; G0378

== ENCOUNTER 2020-08-05 21:54 | Inpatient (IN) | payer MEDICAID, SELFPAY ==
[2020-08-05 21:55] VITALS: BP 146/74; PULSE 113; RESP 14; TEMP 36.8; O2SAT 100; BMI 21.6
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
[2020-08-05] MEDS: Cefazolin 1 GM/50 ML BAG IV (22:40)
[2020-08-05 22:41] VITALS: BP 146/74; PULSE 113; RESP 14; TEMP 36.8; O2SAT 100
[2020-08-05 22:43] LABS: Absolute Neutrophil Count 8.7 X10^3/uL (2.0-7.7); Basophil# 0.04 X10^3/uL; Basophil% 0.3 % (0-1); Eosinophil# 0.03 X10^3/uL; Eosinophils% 0.3 % (0-5); Hematocrit 42.1 % (40-54); Hemoglobin 13.8 g/dL (13.0-16.5); Lymphocyte % 9.6 % (19-41); Mean Corp Hgb Conc 32.8 g/dL (32-36); Mean Corpuscular Hgb 29.2 pg (27.0-32.0); Mean Corpuscular Volume 89.2 fL (80-94); Mean Platelet Vol. 9.7 fl (6.2-12.0); Monocyte# 1.55 X10^3/uL; Monocyte% 13.5 % (0-10); NRBC Flagged by Analyzer 0 % (0-5); Neutrophil # 8.74 X10^3/uL (2.7-7.7); POSITIVE DIFFERENTIAL YES; Platelet Count 259 K/mm3 (150-450); RBC Distribution Width CV 11.9 % (11.6-14.6); RBC Distribution Width SD 39.1 fl (35.1-43.9); Red Blood Count 4.72 M/mm3 (4.6-6.2); White Blood Count 11.5 K/mm3 (4.4-11.0)
[2020-08-05 22:45] VITALS: BP 151/80; PULSE 107; RESP 14; O2SAT 100
[2020-08-05 22:50] LABS: Differential Indicated SCAN CRITERIA MET
[2020-08-05 22:59] LABS: ALB/GLOB Ratio 0.8 RATIO (0.9-2.4); AST(SGOT) 28 U/L (15-37); Alanine Aminotransfer ALT/SGPT 55 U/L (16-61); Albumin, Serum 3.2 g/dL (3.2-5.0); Alkaline Phosphatase 120 U/L (45-117); Anion Gap 3 (5-15); BUN 10 mg/dL (7-18); BUN/Creat Ratio 11.6 RATIO (10-20); Chloride 100 mmol/L (98-107); Creatinine, Serum 0.86 mg/dL (0.70-1.30); EST Glomerular Filtration Rate 119 mL/min (>60); Est Glom Filt Rate - Afr Amer 144 mL/min (>60); Estimated Creatinine Clearance 136.25 ml/min; Globulin 4.2 g/dL (2.2-4.2); Glucose 82 mg/dL (74-106); Potassium 3.6 mmol/L (3.5-5.1); Protein, Total 7.4 g/dL (6.4-8.2); Sodium Level 133 mmol/L (136-145)
[2020-08-05 23:05] LABS: Differential Comment SCANNED
[2020-08-05 23:31] VITALS: BMI 20.7
[2020-08-05 23:33] VITALS: BMI 20.7
[2020-08-05 23:38] VITALS: BP 140/77; PULSE 108; RESP 16; TEMP 37.2; O2SAT 98
--- NOTE | 2020-08-05 23:38 | VDUE_ITS ---
Reason For Study: pain Left Proximal Left jugular vein is spontaneous, widely patent, phasic, with no intraluminal echogenicity noted. Left subclavian vein is spontaneous, widely patent, phasic, with no intraluminal echogenicity noted. Left Arm Left axillary vein is spontaneous, patent, phasic, competent, compressible and demonstrates augmentation. Left brachial vein is compressible. Cephalic Vein above the antecubital space is dilated and noncompressible. No extension into the deep veins. Left basilic vein is compressible. Left Lower Arm Left radial vein is compressible. Left ulnar vein is compressible. Interpretation Summary There is no evidence of left upper extremity deep vein thrombosis. Superficial thrombophlebitis left cephalic vein proximal to the antecubital space. Patent and compressible left basilic vein Ordering Physician: Stephanie Diaz Performed By: Praful Ding RVDanielito ?
[2020-08-05 23:53] VITALS: BP 140/77; PULSE 108; RESP 16; TEMP 37.2; O2SAT 98
[2020-08-05] MEDS: Lactated Ringers 1,000 ML 125 ML IV (23:59)
[2020-08-05] MEDS: Vancomycin IV 1,000 MG/200 ML BAG 200 MG IV (23:59)
[2020-08-06] MEDS: Famotidine 20 MG Tablet PO ×3 (00:01→22:10)
[2020-08-06] MEDS: Acetaminophen 325 MG Tablet 650 MG PO ×2 (00:01→20:07)
--- NOTE | 2020-08-06 00:16 | PCM.RX.CS ---
Consult Pharmacy has been consulted to manage selected antiobiotic: Vancomycin Type of Consult: New start Suspected Infection: Skin/Soft tissue Prior Doses of Antibiotics Received/Current Regimen: Medications Vancomycin HCl (Vancomycin) 1,000 mg in 200 mls @ 200 mls/hr IV X1 ONE Stop: 08/06/20 00:29 Last Admin: 08/05/20 23:59 Dose: 200 mls/hr Vancomycin HCl (Vancomycin) 1,000 mg in 200 mls @ 200 mls/hr IV Q12H NEETU Labs: Sodium 133 mmol/L (136-145) L 08/05/20 22:35 Potassium 3.6 mmol/L (3.5-5.1) 08/05/20 22:35 Chloride 100 mmol/L (98-107) 08/05/20 22:35 Carbon Dioxide 30.0 mmol/L (21.0-32.0) 08/05/20 22:35 Anion Gap 3 (5-15) L 08/05/20 22:35 BUN 10 mg/dL (7-18) 08/05/20 22:35 Creatinine 0.86 mg/dL (0.70-1.30) 08/05/20 22:35 Est GFR (MDRD) Af Amer 144 mL/min (>60) 08/05/20 22:35 Est GFR (MDRD) Non-Af 119 mL/min (>60) 08/05/20 22:35 BUN/Creatinine Ratio 11.6 RATIO (10-20) 08/05/20 22:35 Glucose 82 mg/dL (74-106) 08/05/20 22:35 Weight used for dosin.4 kg Estimated Creatinine Clearance: 136 Goal Trough: 10-15 mcg/mL Pharmacy Plan for Drug Dosing: Pharmacy Service will continue to monitor and adjust dosing as required. Follow-Up Labs: Trough Vancomycin Labs to be done on [date and time ordered]: 08/07/20 @1137
[2020-08-06 03:52] VITALS: BP 147/88; PULSE 79; RESP 16; TEMP 36.9; O2SAT 100
[2020-08-06] MEDS: Methocarbamol 750 MG Tablet 1500 MG PO ×3 (04:01→22:16)
[2020-08-06] MEDS: cloNIDine HCl 0.1 MG Tablet PO (04:01)
[2020-08-06] MEDS: Ibuprofen 600 MG Tablet PO ×2 (04:02→15:01)
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
[2020-08-06 08:40] VITALS: O2SAT 100
--- NOTE | 2020-08-06 08:49 | ADDICTION ---
This marketing copywriter attempted to meet with patient in his room. He did not rouse to 3 attempts at verbal queuing. This marketing copywriter informed Stenciling Machine Tender, Marium, that client was unarousable. This marketing copywriter will attempt to meet with patient at next visit on 08/07/2020.
[2020-08-06] MEDS: Vancomycin IV 1,000 MG/200 ML BAG 200 MG IV ×2 (11:29→23:37)
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
[2020-08-06 13:17] LABS: Pathologist Review Reviewed
[2020-08-06 14:30] VITALS: BP 138/80; PULSE 98; RESP 18; TEMP 37.2; O2SAT 100
[2020-08-06] MEDS: Gabapentin 300 MG Capsule PO (14:34)
[2020-08-06 15:31] LABS: Absolute Lymphocyte Count 0.93 X10^3/uL (0.83-4.51); Absolute Neutrophil Count 6.7 X10^3/uL (2.0-7.7); Basophil# 0.03 X10^3/uL; Basophil% 0.3 % (0-1); Eosinophil# 0.04 X10^3/uL; Eosinophils% 0.4 % (0-5); Hematocrit 44.4 % (40-54); Hemoglobin 14.3 g/dL (13.0-16.5); Lymphocyte # 0.93 X10^3/ul (4.0); Lymphocyte % 10.1 % (19-41); Mean Corp Hgb Conc 32.2 g/dL (32-36); Mean Corpuscular Hgb 28.8 pg (27.0-32.0); Mean Corpuscular Volume 89.5 fL (80-94); Mean Platelet Vol. 10.2 fl (6.2-12.0); Monocyte# 1.43 X10^3/uL; Monocyte% 15.6 % (0-10); NRBC Flagged by Analyzer 0 % (0-5); Neutrophil # 6.73 X10^3/uL (2.7-7.7); Neutrophil % 73.3 % (47-70); Platelet Count 255 K/mm3 (150-450); RBC Distribution Width CV 11.9 % (11.6-14.6); RBC Distribution Width SD 38.9 fl (35.1-43.9); Red Blood Count 4.96 M/mm3 (4.6-6.2); White Blood Count 9.2 K/mm3 (4.4-11.0)
[2020-08-06 16:10] LABS: ALB/GLOB Ratio 0.6 RATIO (0.9-2.4); AST(SGOT) 25 U/L (15-37); Alanine Aminotransfer ALT/SGPT 52 U/L (16-61); Albumin, Serum 2.9 g/dL (3.2-5.0); Alkaline Phosphatase 136 U/L (45-117); Anion Gap 5 (5-15); BUN 8 mg/dL (7-18); BUN/Creat Ratio 11.2 RATIO (10-20); Calcium,Total 8.3 mg/dL (8.5-10.1); Chloride 104 mmol/L (98-107); Creatinine, Serum 0.71 mg/dL (0.70-1.30); EST Glomerular Filtration Rate 149 mL/min (>60); Est Glom Filt Rate - Afr Amer 180 mL/min (>60); Estimated Creatinine Clearance 158.22 ml/min; Globulin 4.8 g/dL (2.2-4.2); Glucose 107 mg/dL (74-106); Potassium 3.8 mmol/L (3.5-5.1); Protein, Total 7.7 g/dL (6.4-8.2); Sodium Level 137 mmol/L (136-145)
[2020-08-06 16:20] LABS: Amphetamine Urine VISTA POSITIVE (<1000 ng/mL); Barbiturate Urine VISTA NEGATIVE (< 200 ng/mL); Benzodiazepine Urine VISTA NEGATIVE (< 200 ng/mL); Cocaine Urine VISTA NEGATIVE (< 300 ng/mL); Ecstacy Urine VISTA NEGATIVE (< 500 ng/mL); Methadone Urine VISTA NEGATIVE (< 300 ng/mL); PCP Urine VISTA NEGATIVE (< 25 ng/mL); THC Urine VISTA NEGATIVE (< 50 ng/mL); Vista UDS pH Range 7
[2020-08-06 20:04] VITALS: BP 125/93; PULSE 96; RESP 18; TEMP 36.9; O2SAT 100
[2020-08-06] MEDS: 0.9% Saline Lock 10 ML Syringe IV (23:37)
[2020-08-07] MEDS: Buprenorphine HCl 2 MG TAB.SUBL SL ×3 (00:48→16:39)
[2020-08-07 02:46] VITALS: BP 128/70; PULSE 96; RESP 18; TEMP 36.6; O2SAT 99
[2020-08-07] MEDS: Acetaminophen 325 MG Tablet 650 MG PO ×2 (03:06→19:48)
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
[2020-08-07 08:49] VITALS: BP 135/73; PULSE 90; RESP 18; TEMP 36.7; O2SAT 98
[2020-08-07] MEDS: Ibuprofen 600 MG Tablet PO ×2 (08:57→23:00)
[2020-08-07] MEDS: Famotidine 20 MG Tablet PO ×2 (08:58→22:00)
--- NOTE | 2020-08-07 09:26 | ADDICTION ---
This fiction and nonfiction writer prose met with patient in his room to conduct ASAM, MSE and DUDIT assessments and to plan for discharge. Patient was alert and oriented and presented with depressed mood/flat affect. He stated that he plans to follow-up with [facility] for counseling following d/c from [facility]. He refused coordination for aftercare and primary care. He reported that he has access to transportation following d/c from [facility]. He appears appropriate for the 4.0 LOC as evidenced by age of use onset, ongoing w/d symptoms and physical health barriers.
[2020-08-07] MEDS: Vancomycin IV 1,000 MG/200 ML BAG 200 MG IV (11:59)
--- NOTE | 2020-08-07 13:50 | PCM.RX.CS ---
Consult Pharmacy has been consulted to manage selected antiobiotic: Vancomycin Type of Consult: Follow-up Suspected Infection: Skin/Soft tissue Prior Doses of Antibiotics Received/Current Regimen: Has been on 1gm iv q12h. Labs: Sodium 137 mmol/L (136-145) 08/06/20 15:14 Potassium 3.8 mmol/L (3.5-5.1) 08/06/20 15:14 Chloride 104 mmol/L (98-107) 08/06/20 15:14 Carbon Dioxide 28.0 mmol/L (21.0-32.0) 08/06/20 15:14 Anion Gap 5 (5-15) 08/06/20 15:14 BUN 8 mg/dL (7-18) 08/06/20 15:14 Creatinine 0.71 mg/dL (0.70-1.30) 08/06/20 15:14 Est GFR (MDRD) Af Amer 180 mL/min (>60) 08/06/20 15:14 Est GFR (MDRD) Non-Af 149 mL/min (>60) 08/06/20 15:14 BUN/Creatinine Ratio 11.2 RATIO (-) 08/06/20 15:14 Glucose 107 mg/dL (74-106) H 08/06/20 15:14 Vancomycin Trough 2.0 ug/mL (5.0-15.0) L 08/07/20 11:32 Weight used for dosin kg Estimated Creatinine Clearance: >100ml/min Goal Trough: 10-15 mcg/mL Pharmacy Plan for Drug Dosing: Trough today 2.0. Renal reviewed. Will increase dose to 1250mg iv q8h to try for trough closer to 10-15mcg/ml range. Will get another trough before 4th dose of new regimen. Pharmacy Service will continue to monitor and adjust dosing as required. Follow-Up Labs: Trough Vancomycin - 08.08.20 @1930 before 2000 dose
[2020-08-07 14:14] VITALS: BP 134/63; PULSE 79; RESP 18; TEMP 36.7; O2SAT 98
[2020-08-07 19:42] VITALS: BP 121/68; PULSE 81; RESP 18; TEMP 36.5; O2SAT 100
[2020-08-07] MEDS: 0.9% Saline Lock 10 ML Syringe IV ×2 (19:48→22:01)
[2020-08-08] MEDS: Buprenorphine HCl 2 MG TAB.SUBL SL ×3 (00:17→17:04)
[2020-08-08 02:36] VITALS: BP 113/66; PULSE 66; RESP 18; TEMP 36.5; O2SAT 100
[2020-08-08] MEDS: 0.9% Saline Lock 10 ML Syringe IV ×2 (04:14→14:05)
[2020-08-08 07:59] VITALS: BP 129/71; PULSE 77; RESP 18; TEMP 36.3; O2SAT 100
[2020-08-08 08:14] VITALS: O2SAT 100
[2020-08-08] MEDS: Famotidine 20 MG Tablet PO ×2 (09:49→21:41)
--- NOTE | 2020-08-08 16:00 | PN_ITS ---
Patient Problems: Active and Suspected Problems Acute opioid withdrawal (Acute) Cellulitis of left upper arm (Acute) Subjective: Resting well, no issues overnight. Cellulitis appears much improved Vitals/I&O's: Vital Signs Temp Pulse Resp BP Pulse Ox 97.4 F L 77 18 129/71 H 100 08/08/20 07:59 08/08/20 07:59 08/08/20 07:59 08/08/20 07:59 08/08/20 08:14 Oxygen Delivery Method Room Air Weight: 148 lb 9.465 oz Body Mass Index (BMI) 20.7 Intake and Output for Last 24 Hours 08/06/20 08/07/20 08/08/20 23:59 23:59 23:59 Intake Total 4870 / 4870 3075 / 3075 1050 / 1050 Balance 4870 / 4870 3075 / 3075 1050 / 1050 General: Alert, Oriented x3, Cooperative, No apparent distress HEENT: Atraumatic, PERRLA, EOMI, Normocephalic Oral: Moist Mucosa Neck: Supple, No JVD Lungs: Clear to auscultation, Normal air movement, No rhonchi, No wheeze, No rales Cardiovascular: Regular rate, Regular Rhythm, Normal S1, Normal S2, No murmurs Abdomen: Soft, Non Tender, Non-Distended, No Hepato-splenomegaly Extremities: No edema, Capillary Refill Less than 3 Seconds Skin: Ulcer/ Wound - Erythema on the left upper extremity Neurological: Neuro grossly intact, Sensory exam intact to light touch and pain Psych/Mental Status: Normal Affect, Appropriate Current Medications Acetaminophen (Acetaminophen 325 Mg Tablet) 650 mg PO Q4H PRN PRN PRN Reason: Pain Score 1-10/Temp > 100.7 F Last Admin: 08/07/20 19:48 Dose: 650 mg Documented by: Al Hydroxide/Mg Hydroxide (Mag Hydrox/Al Hydrox/Simeth 30 Ml Udc) 30 ml PO Q6H PRN PRN PRN Reason: dyspesia Albuterol Sulfate (Albuterol 2.5 Mg/3 Ml Vial.Neb.) 2.5 mg INHALATION Q2H PRN PRN PRN Reason: Dyspnea, wheezing Bisacodyl (Bisacodyl 10 Mg Suppository) 10 mg RECTAL DAILY PRN PRN Reason: Constipation Buprenorphine HCl (Buprenorphine Hcl 2 Mg Tab.Subl) 2 mg SL Q8H [facility]; Taper Stop: 08/09/20 23:59 Last Admin: 08/08/20 08:02 Dose: 2 mg Documented by: Clonidine (Clonidine Hcl 0.1 Mg Tablet) 0.1 mg PO Q8H PRN PRN PRN Reason: RESTLESSNESS Last Admin: 08/06/20 04:01 Dose: 0.1 mg Documented by: Dicyclomine HCl (Dicyclomine 10 Mg Capsule) 20 mg PO Q6H PRN PRN PRN Reason: Abdominal Discomfort Famotidine (Famotidine 20 Mg Tablet) 20 mg PO BID [facility] Last Admin: 08/08/20 09:49 Dose: 20 mg Documented by: Gabapentin (Gabapentin 300 Mg Capsule) 300 mg PO Q8H PRN PRN PRN Reason: moderate to severe anxiety Last Admin: 08/06/20 14:34 Dose: 300 mg Documented by: Guaifenesin (Guaifenesin 10 Ml Udc (200mg/10ml)) 20 ml PO Q4H PRN PRN PRN Reason: COUGH Hydralazine HCl (Hydralazine 20 Mg/Ml Vial) 10 mg IV Q4H PRN PRN PRN Reason: SBP > 160 Hydroxyzine Pamoate (Hydroxyzine Karma 25 Mg Capsule) 50 mg PO Q6H PRN PRN PRN Reason: mild anxiety Vancomycin IV Pharmacy to Dose (1 ea/ Sodium Chloride) 500 mls @ 250 mls/hr IV PRN PRN; Protocol PRN Reason: Rx to Dose Vancomycin HCl 1,250 mg/ (Sodium Chloride) 275 mls @ 167 mls/hr IV Q8H [facility] Last Infusion: 08/08/20 14:04 Dose: Infused Documented by: Ibuprofen (Ibuprofen 600 Mg Tablet) 600 mg PO Q8H PRN PRN PRN Reason: Pain Score 1-10 Last Admin: 08/07/20 23:00 Dose: 600 mg Documented by: Lidocaine HCl (Lidocaine 2% Viscous 15 Ml Udc) 1 ml PO Q4H PRN PRN PRN Reason: sore tooth Last Admin: 08/07/20 23:01 Dose: 1 ml Documented by: Loperamide HCl (Loperamide 2 Mg Capsule) 2 mg PO Q4H PRN PRN PRN Reason: LOOSE STOOLS Methocarbamol (Methocarbamol 750 Mg Tablet) 1,500 mg PO Q6H PRN PRN PRN Reason: MUSCLE SPASM Last Admin: 08/06/20 22:16 Dose: 1,500 mg Documented by: Nicotine (Nicotine 21 Mg Patch) 21 mg TRANSDERM. DAILY [facility] Last Admin: 08/08/20 09:49 Dose: 21 mg Documented by: Nutritional Formula (Lactose Free) (Ensure Enlive 120 Ml Liquid) 120 ml PO 4X/DAY [facility] Last Admin: 08/08/20 14:07 Dose: Not Given Documented by: Ondansetron HCl (Ondansetron 8 Mg Tablet) 8 mg PO Q8H PRN PRN PRN Reason: NAUSEA Ondansetron HCl (Ondansetron 4 Mg/2 Ml Vial) 4 mg IV Q8H PRN PRN PRN Reason: NAUSEA/VOMITING Prochlorperazine Edisylate (Prochlorperazine 10 Mg/2 Ml Vial) 5 mg IV Q4H PRN PRN PRN Reason: Breakthrough nausea/vomiting Senna (Senna Tablet) 2 tablet PO QHS PRN PRN Reason: Constipation Sodium Chloride (0.9% Saline Lock 10 Ml Syringe) 10 - 40 ml IV UD PRN PRN Reason: SALINE FLUSH Last Admin: 08/08/20 14:05 Dose: 10 ml Documented by: Throat Lozenges (Benzocaine/Menthol 1 Lozenge) 1 lozenge MUCOUS MEM Q2H PRN PRN PRN Reason: SORE THROAT Trazodone HCl (Trazodone 100 Mg Tablet) 100 mg PO QHS PRN PRN PRN Reason: INSOMNIA Medical Necessity - Tobacco Use Smoking Status: Current every day smoker Tobacco Use: Cigarettes Assessment/Plan All Active Problems Acute opioid withdrawal (Acute) Cellulitis of left upper arm (Acute) 1. Acute opiate withdrawal/left upper extremity cellulitis with thrombophlebitis/polysubstance abuse/history of chronic hep C -Continue with Subutex taper and opiate withdrawal protocol. Should be completed by tomorrow -Doppler was negative for DVT in her left upper extremity -Continue with IV vancomycin, consult to infectious disease is pending though he is improving with the vancomycin he can likely be transition to an oral antibiotic on discharge unfortunately no blood cultures had been obtained prior to the initiation of antibiotics -He will have to discontinue IV drug use if he wants to be treated for his hep C 2. Left lower extremity hematoma -Does not appear infected -No necessary treatment at this time 3. Tobacco abuse -Offered nicotine patch -Discussed cessation 4. Depression/anxiety -Not currently on any medications. If he does 1 to be successful with rehab he will need his mental health issues evaluated and treated DVT: Ambulation Inpatient E&M: 22406 Subs Hosp L2
--- NOTE | 2020-08-08 16:58 | PCM.HP.ID ---
Problem List (1) Cellulitis of left upper arm Status: Acute Reason for Consult: cellulitis Consulted by: Dr. Dale History of Present Illness: The patient is a 19 year old M with hep C Ab (+), IVDU, presented for detox, also with LUE redness/pain/swelling after injecting into that arm. Does share needles, does not lick needles. No drainage, no fever. On vanc here, LUE much improved. No h/o hep C treatment. Full ROS performed and neg except as noted above. - Medical History Past Medical History (Chronic Problems): Chronic Problems Nicotine dependence (Chronic) Anxiety and depression (Chronic) Opiate dependence (Chronic) Hematoma of left thigh (Chronic) Tobacco use (Chronic) Allergies/Adverse Reactions: Allergies No Known Allergies Allergy (Verified 08/05/20 21:58) Home Medications: Ambulatory Orders Medication Instructions Recorded NK 05/14/20 - Social History Tobacco Use: cigarettes Drug Use: heroin Vital Signs Temp Pulse Resp BP Pulse Ox 97.4 F L 77 18 129/71 H 100 08/08/20 07:59 08/08/20 07:59 08/08/20 07:59 08/08/20 07:59 08/08/20 08:14 Oxygen Delivery Method Room Air Weight: 67.4 kg Body Mass Index (BMI) 20.7 - Other Studies Radiology: [] reviewed Other Studies: [] Route of nutrition/ use of supplements: [] Nutritional Intake: [] IV Site: [] Montes Catheter: [] - Physical Exam General: Alert, Oriented x3, Cooperative, No apparent distress HEENT: Atraumatic, PERRLA, EOMI Neck: Supple, No Nodes Lungs: Clear to auscultation, Normal air movement Cardiovascular: Regular rate, Regular Rhythm Abdomen: Soft, Non Tender, Non-Distended Extremities: No edema Skin: Rash Present - L upper arm, area of redness and mild swelling IV Site: Peripheral, without redness Musculoskeletal: No Tenderness to Palpation of Joints or Extremities Neurological: Cranial nerves II-XII grossly intact - Assessment/Plan Antibiotics: [] Assessment/Plan: [] Active and Suspected Problems Acute opioid withdrawal (Acute) Cellulitis of left upper arm (Acute) LUE cellulitis due to IVDU, h/o hep C - overall much improved on vanc, will change to po bactrim and keflex, plan on 5 more days. Counseled him re: need to stop ivdu and stop sharing needles. Will follow as needed, thank you, d/w primary team
[2020-08-08 17:05] VITALS: BP 126/66; PULSE 75; RESP 16; TEMP 36.4; O2SAT 98
[2020-08-08] MEDS: Smz/Tmp Ds Tablet 1 TABLET PO (20:37)
[2020-08-08 21:39] VITALS: BP 139/72; PULSE 85; RESP 16; TEMP 37; O2SAT 98
[2020-08-08] MEDS: Cephalexin 500 MG Capsule PO (21:41)
[2020-08-08] MEDS: traZODone 100 MG Tablet PO (21:45)
[2020-08-09 00:03] VITALS: BP 115/67; PULSE 90; RESP 16; TEMP 37.3; O2SAT 100
[2020-08-09] MEDS: Buprenorphine HCl 2 MG TAB.SUBL SL ×2 (00:06→11:56)
[2020-08-09] MEDS: Ondansetron 8 MG Tablet PO (00:08)
[2020-08-09] MEDS: Cephalexin 500 MG Capsule PO ×2 (05:48→13:08)
[2020-08-09 05:49] VITALS: BP 128/68; PULSE 91; RESP 16; TEMP 36.4; O2SAT 97
[2020-08-09] MEDS: Smz/Tmp Ds Tablet 1 TABLET PO (08:47)
[2020-08-09 08:50] VITALS: PULSE 76
[2020-08-09] MEDS: Famotidine 20 MG Tablet PO (09:56)
[2020-08-09 10:01] VITALS: BP 131/60; PULSE 86; RESP 16; TEMP 36.8; O2SAT 95
--- NOTE | 2020-08-09 11:39 | PCM.DC ---
- Discharge Diagnoses Current Active Problems: Current Active and Chronic Problems Acute opioid withdrawal (Acute) Nicotine dependence (Chronic) Anxiety and depression (Chronic) Opiate dependence (Chronic) Cellulitis of left upper arm (Acute) Hematoma of left thigh (Chronic) Tobacco use (Chronic) You will use the following diet at home:: Regular Your food should be the consistency of: Regular Your liquids should be the consistency of: Regular/Thin Discharge Activity: Return to Normal Activity Call your doctor if you observe: Fever of 101 or Higher, Shortness of breath, Dizziness, Fainting spells, Swelling in the ankles, Chest pain, Increased palpitations (irregular heartbeat) Allergies/Adverse Reactions: Allergies No Known Allergies Allergy (Verified 08/05/20 21:58) Medications to take at Discharge Cephalexin [Keflex] 500 mg PO Q8 #15 cap 08/09/20 Smz/Tmp Ds [Bactrim Ds] 1 tab PO BIDCM #10 tab 08/09/20 The following prescriptions were given: Smz/Tmp Ds [Bactrim Ds] 1 tab PO BIDCM #10 tab Transmission Status: Pending to [facility] Cephalexin [Keflex] 500 mg PO Q8 #15 cap Transmission Status: Pending to [facility] Primary Care Physician: Care Physician,No Primary [Primary Care Provider] - Test Results: Test results from this visit will be discussed in further detail at your follow-up appointment, if applicable.
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
[2020-08-09 13:08] VITALS: BP 122/67; PULSE 95; RESP 18; TEMP 36.7; O2SAT 95
== END 2020-08-09 13:15 | disposition home or self-care (01) | DRG 773 ==
LOC: ED 22:23 → MS3 22:49
PROVIDERS: Admitting Provider Family Medicine; Emergency Provider Emergency Medicine; Visit Provider Family Medicine
DX: F11.23 Opioid dependence with withdrawal (principal); L03.114 Cellulitis of left upper limb; S70.12XA Contusion of left thigh, initial encounter; W50.0XXA Accidental hit or strike by another person, initial encounter; Y93.9 Activity, unspecified; Y92.9 Unspecified place or not applicable; F17.210 Nicotine dependence, cigarettes, uncomplicated; F15.10 Other stimulant abuse, uncomplicated; R03.0 Elevated blood-pressure reading, without diagnosis of hypertension; B18.2 Chronic viral hepatitis C; F41.8 Other specified anxiety disorders; I80.8 Phlebitis and thrombophlebitis of other sites
CPT/HCPCS: 36415; 80053; 80202; 80307; 80320; 85025; 93971; 97802; 99285; 99406; J7050; J7120; A4216; G0480

== ENCOUNTER 2021-02-27 10:22 | Emergency (ER) | payer MEDICAID, SELFPAY ==
[2021-02-27 10:22] VITALS: BP 128/107; PULSE 101; RESP 19; TEMP 36.6; O2SAT 100; BMI 23.6
[2021-02-27 10:24] VITALS: BP 128/107; PULSE 101; RESP 19; TEMP 36.6; O2SAT 100
[2021-02-27 10:27] VITALS: BP 128/107; PULSE 101; RESP 19; TEMP 36.6; O2SAT 100
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
[2021-02-27] MEDS: Ondansetron ODT 4 MG Tablet PO (11:08)
[2021-02-27 11:10] LABS: Absolute Neutrophil Count 11.5 X10^3/uL (2.0-7.7); Basophil# 0.02 X10^3/uL; Basophil% 0.2 % (0-1); Eosinophil# 0.04 X10^3/uL; Eosinophils% 0.3 % (0-5); Hematocrit 45.4 % (40-54); Hemoglobin 15.5 g/dL (13.0-16.5); Lymphocyte % 3.9 % (19-41); Mean Corp Hgb Conc 34.1 g/dL (32-36); Mean Corpuscular Hgb 29.8 pg (27.0-32.0); Mean Corpuscular Volume 87.1 fL (80-94); Mean Platelet Vol. 10.6 fl (6.2-12.0); Monocyte# 0.67 X10^3/uL; Monocyte% 5.2 % (0-10); NRBC Flagged by Analyzer 0 % (0-5); Neutrophil # 11.54 X10^3/uL (2.7-7.7); Neutrophil % 89.9 % (47-70); POSITIVE DIFFERENTIAL YES; Platelet Count 193 K/mm3 (150-450); RBC Distribution Width CV 11.7 % (11.6-14.6); RBC Distribution Width SD 37.6 fl (35.1-43.9); Red Blood Count 5.21 M/mm3 (4.6-6.2); White Blood Count 12.8 K/mm3 (4.4-11.0)
--- NOTE | 2021-02-27 11:10 | ED.RN ---
pt and father c/o pt being nauseated and thirsty. this rn attempted to explain that once the nausea was under control then the pt might be able to have water.
[2021-02-27 11:11] LABS: Differential Indicated SCAN CRITERIA MET
--- NOTE | 2021-02-27 11:11 | ED.RN ---
this rn had to place the zofran in the pt's mouth d/t pt not being coordinated enough at this time. pt remains lethargic.
[2021-02-27 11:25] VITALS: BP 135/86; PULSE 99; RESP 18; O2SAT 94
[2021-02-27 11:27] VITALS: BP 117/97; PULSE 104; RESP 30; TEMP 37.2; O2SAT 96
[2021-02-27 11:27] LABS: ALB/GLOB Ratio 1.1 RATIO (0.9-2.4); AST(SGOT) 65 U/L (15-37); Alanine Aminotransfer ALT/SGPT 92 U/L (16-61); Alkaline Phosphatase 120 U/L (45-117); Anion Gap 6 (5-15); BUN 12 mg/dL (7-18); BUN/Creat Ratio 10.3 RATIO (10-20); Calcium,Total 8.6 mg/dL (8.5-10.1); Chloride 99 mmol/L (98-107); Creatinine, Serum 1.16 mg/dL (0.70-1.30); EST Glomerular Filtration Rate 84 mL/min (>60); Est Glom Filt Rate - Afr Amer 102 mL/min (>60); Estimated Creatinine Clearance 107.29 ml/min; Globulin 3.8 g/dL (2.2-4.2); Glucose 109 mg/dL (74-106); Potassium 3.2 mmol/L (3.5-5.1); Protein, Total 7.8 g/dL (6.4-8.2); Sodium Level 137 mmol/L (136-145)
[2021-02-27 11:31] LABS: Alcohol, Blood (Medical)-Serum < 3.0 mg/dL
[2021-02-27] MEDS: Ondansetron 4 MG/2 ML Vial IM (11:37)
[2021-02-27 12:00] VITALS: BP 119/59; PULSE 92; RESP 19; TEMP 36.6; O2SAT 98
--- NOTE | 2021-02-27 12:08 | ED.RN ---
PT FATHER UPDATED ON PLAN
--- NOTE | 2021-02-27 12:20 | ED.RN ---
pt given non-slip socks.
== END 2021-02-27 12:20 | disposition home or self-care (01) ==
PROVIDERS: Emergency Provider Emergency Medicine
DX: T40.2X1A Poisoning by other opioids, accidental (unintentional), initial encounter (principal); F17.210 Nicotine dependence, cigarettes, uncomplicated
CPT/HCPCS: 80053; 82077; 85025; 96372; 99284; A4216; J2405